=== PATIENT | male | born 1975 | race Two or more races ===

== ENCOUNTER 2021-12-17 16:09 | Emergency (ER) | payer BC, OTHER ==
[~2021-12-17] VITALS: Ht 172.7 cm; Wt 100.0 kg
[2021-12-17] MEDS ORDERED: LIDOCAINE 1% HCL (LOCAL ANESTH.) INJ 20ML MDV ID ONE (18:30)
[2021-12-17] MEDS ORDERED: MORPHINE SULFATE 4 MG/ML SYR/VIAL IV ONE ×2 (18:45→22:00)
[2021-12-17] MEDS ORDERED: MORPHINE SULFATE 4 MG/ML SYR/VIAL IM ONE ×2 (22:15→22:30)
[2021-12-17] MEDS ORDERED: HYDROcodone-ACET 10/325MG TAB PO ONE (23:15)
[2021-12-17 23:47] LABS: Basophils # (auto) 0 10 ^3/uL (0-0.2); Eosinophils # (auto) 0 10 ^3/uL (0-0.8); Hematocrit 45.4 % (41.0-53.0); Nucleated Red Blood Cells % 0.1 %
[2021-12-17 23:48] LABS: Basophils % (auto) 0.1 % (0.0-2.0); Hemoglobin 15.5 g/dL (13.5-17.5); Lymphocytes # (auto) 0.6 10 ^3/uL (0.4-5.4); Lymphocytes % (auto) 3.9 % (10.0-50.0); Mean Corpuscular Hemoglobin 26.7 pg (28.0-32.0); Mean Corpuscular Hgb Conc. 34.1 g/dL (32.0-36.0); Mean Corpuscular Volume 78.2 fL (80.0-100.0); Monocytes # (auto) 0.8 10 ^3/uL (0-1.3); Monocytes % (auto) 5.7 % (0.0-12.0); Neutrophils % (auto) 90.3 % (37.0-80.0); Red Cell Distribution Width 14.3 % (11.8-14.3); White Blood Cell 14.4 10^3/uL (4.4-10.8)
[2021-12-18 00:11] LABS: Albumin 4.5 g/dL (3.4-5.0); BUN/Creatinine Ratio 20.6; Calcium 9.3 mg/dL (8.5-10.1); Potassium 4.5 mmol/L (3.5-5.1)
[2021-12-18 00:14] LABS: Bilirubin, Total 0.7 mg/dL (0.2-1.0); Total Protein 7.9 g/dL (6.4-8.2)
[2021-12-18] MEDS ORDERED: HYDR-4798 PO (01:28)
[2021-12-18 03:30] VITALS: BP 120/70
== END 2021-12-18 03:38 | disposition home or self-care (01) ==
LOC: ER 16:09 → EDBD 16:09 → ER 12-18 03:38
DX: S63.114A Dislocation of metacarpophalangeal joint of right thumb, initial encounter (principal); S42.002A Fracture of unspecified part of left clavicle, initial encounter for closed fracture; S22.32XA Fracture of one rib, left side, initial encounter for closed fracture; V28.09XA Other motorcycle driver injured in noncollision transport accident in nontraffic accident, initial encounter; Y93.89 Activity, other specified; Y99.8 Other external cause status; Y92.410 Unspecified street and highway as the place of occurrence of the external cause
CPT/HCPCS: 26770; 36415; 71045; 72070; 73030; 73130; 74177; 80053; 85025; 96372; 99285; J2001; J2270